=== PATIENT | male | born 2000 | race Caucasian/White ===

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

== ENCOUNTER 2019-02-25 14:32 | Emergency (ER) | payer MEDICAID ==
[2019-02-25 15:11] VITALS: BP 112/49
[2019-02-25] MEDS ORDERED: Lidocaine 2% 20 ML MDV NERVRT ONE (15:37)
[2019-02-25] MEDS ORDERED: Bacitracin Oint 1 GM U/D Packet TOP ONE (15:38)
[2019-02-25] MEDS ORDERED: Diphtheria,Pertussis(Acell),Tetanus Vaccine 0.5 ML SDV IM ONE (15:38)
--- NOTE | 2019-02-25 15:43 | EDM.PDOC ---
ED HPI GENERAL MEDICAL PROBLEM - General Chief Complaint: Laceration Stated Complaint: CUT LEFT THUMB Time Seen by Provider: 02/25/19 15:30 Source of Information: Reports: Patient History Limitations: Reports: No Limitations - History of Present Illness INITIAL COMMENTS - FREE TEXT/NARRATIVE: 18 yo male here after lacerating his L thumb tip, near avulsion, with a typing secretary knife. Tetanus not UTD. Injury about an hour ago. 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: Reports: Other (see below) (dressing applied) Left Finger-Thumb Pain Score (Numeric/FACES): 2 - Related Data Allergies Allergy/AdvReac Type Severity Reaction Status Date / Time bee venom protein (honey bee) Allergy Anaphylactic Verified 02/25/19 15:49 Shock Home Meds: Home Meds NK [No Known Home Meds] 11/27/18 [History] Past Medical History HEENT History: Reports: Allergic Rhinitis Respiratory History: Reports: Asthma Musculoskeletal History: Reports: Other (See Below) Other Musculoskeletal History: fx r wrist fx r elbow Neurological History: Reports: Concussion Psychiatric History: Reports: ADD, Anxiety, Depression, Hallucinations, Panic Attack, PTSD - Past Surgical History Head Surgeries/Procedures: Reports: None HEENT Surgical History: Reports: None Respiratory Surgical History: Reports: None Musculoskeletal Surgical History: Reports: None Dermatological Surgical History: Reports: None Social & Family History - Family History Family Medical History: Unobtainable - Caffeine Use Caffeine Use: Reports: Coffee ED ROS GENERAL - Review of Systems Review Of Systems: See Below Constitutional: Reports: No Symptoms Musculoskeletal: Reports: No Symptoms Skin: Reports: Wound (L thumb tip) Neurological: Reports: No Symptoms ED EXAM, SKIN/RASH Exam: See Below Exam Limited By: No Limitations General Appearance: Alert, WD/WN, No Apparent Distress Extremities: Other (injured L thumb tip) Neurological: Alert, Oriented, CN II-XII Intact, Normal Cognition, No Motor/ Sensory Deficits Psychiatric: Normal Affect, Normal Mood Skin: Warm, Dry, Intact, Normal Color, No Rash Location, Skin: Upper Extremity, Left (thumb tip) Characteristics: Other (flap) Associated features: Tenderness. No: Warmth, Swelling, Lymphangitis ED SKIN PROCEDURES - Laceration/Wound Repair Left Hand Appearance: Subcutaneous, Clean Distal NVT: Neuro & Vascular Intact, No Tendon Injury Anesthetic Type: Digital Local Anesthesia - Lidocaine (Xylocaine): 2% Plain Local Anesthetic Volume: 5cc Skin Prep: Saline Closed with: Sutures Suture Size: other (5-0) Suture Type: Nylon, Simple # of Sutures: 2 Drain Placement: No Sterile Dressing Applied: Nurse Tetanus Status Addressed: Yes Complications: No Course - Vital Signs Last Recorded V/S: Last Vital Signs Temp 35.4 C 02/25/19 15:59 Pulse 67 02/25/19 15:59 Resp 13 02/25/19 15:59 BP 112/49 L 02/25/19 15:59 Pulse Ox 92 L 02/25/19 15:59 - Orders/Labs/Meds Orders: Active Orders 24 hr Category Date Time Status Vaccines to be Administered [RC] PER UNIT ROUTINE Care 02/25/19 15:38 Active Meds: Medications Discontinued Medications Generic Name Dose Route Start Last Admin Trade Name Freq PRN Reason Stop Dose Admin Bacitracin 1 dose 02/25/19 15:38 02/25/19 15:50 Bacitracin Oint 1 Gm TOP 02/25/19 15:39 1 dose ONETIME ONE Administration Diphtheria/Tetanus/Acell Pertussis 0.5 ml 02/25/19 15:38 02/25/19 15:51 Adacel IM 02/25/19 15:39 0.5 ml .ONCE ONE Administration Lidocaine HCl 20 ml 02/25/19 15:37 02/25/19 15:50 Xylocaine 2% NERVRT 02/25/19 15:38 20 ml ONETIME ONE Administration Departure - Departure Time of Disposition: 16:30 Disposition: Home, Self-Care 01 Condition: Good Clinical Impression: Laceration of thumb Qualifiers: Encounter type: initial encounter Damage to nail status: without damage Foreign body presence: without foreign body Laterality: left Qualified Code(s): S61.012A - Laceration without foreign body of left thumb without damage to nail , initial encounter - Discharge Information *PRESCRIPTION DRUG MONITORING PROGRAM REVIEWED*: No *COPY OF PRESCRIPTION DRUG MONITORING REPORT IN PATIENT VELASQUEZ: No Instructions: Laceration Care, Adult Referrals: PCP,None [Primary Care Provider] - Forms: ED Department Discharge Additional Instructions: Clean wound twice daily with soap and water starting tomorrow evening. Dry. Apply antibiotic ointment and a new dressing. Recheck for signs of infection. Stitches out in the clinic in 9 days. - My Orders Last 24 Hours: My Active Orders 02/25/19 15:38 Vaccines to be Administered [RC] PER UNIT ROUTINE - Assessment/Plan Last 24 Hours: My Active Orders 02/25/19 15:38 Vaccines to be Administered [RC] PER UNIT ROUTINE
== END 2019-02-25 16:38 | disposition home or self-care (01) ==
LOC: JP.ED 14:32
DX: S61.012A Laceration without foreign body of left thumb without damage to nail, initial encounter (principal); W26.0XXA Contact with knife, initial encounter; Z23 Encounter for immunization; Z91.030 Bee allergy status
CPT/HCPCS: 12001; 90471; 90715; 99282; J2001

== ENCOUNTER 2019-03-29 12:57 | Emergency (ER) | payer SELFPAY ==
[2019-03-29 13:46] VITALS: BP 123/74
[2019-03-29] MEDS ORDERED: Bacitracin Oint 1 GM U/D Packet TOP ONE (13:56)
--- NOTE | 2019-03-29 14:01 | EDM.PDOC ---
ED HPI GENERAL MEDICAL PROBLEM - General Chief Complaint: Laceration Stated Complaint: CUT FINGER WITH KNIFE Time Seen by Provider: 03/29/19 13:50 Source of Information: Reports: Patient, Old Records, RN History Limitations: Reports: No Limitations - History of Present Illness INITIAL COMMENTS - FREE TEXT/NARRATIVE: 18 yo male presents from work with an avulsion from the tip of the L thumb. Bleeding difficult to control. Tetanus is UTD. Onset: Today Onset Date: 03/29/19 Onset Time: 13:00 Duration: Minutes:, Constant Location: Reports: Upper Extremity, Left Quality: Reports: Burning Severity: Mild Improves with: Reports: None Worsens with: Reports: Other (bumping area) Context: Reports: Trauma Associated Symptoms: Reports: No Other Symptoms Treatments TRACTOR TECHNICIAN: Reports: Other (see below) (none) - Related Data Allergies Allergy/AdvReac Type Severity Reaction Status Date / Time bee venom protein (honey bee) Allergy Anaphylactic Verified 03/29/19 13:45 Shock Home Meds: Home Meds NK [No Known Home Meds] 11/27/18 [History] Past Medical History HEENT History: Reports: Allergic Rhinitis Respiratory History: Reports: Asthma Musculoskeletal History: Reports: Other (See Below) Other Musculoskeletal History: fx r wrist fx r elbow Neurological History: Reports: Concussion Psychiatric History: Reports: ADD, Anxiety, Depression, Hallucinations, Panic Attack, PTSD - Past Surgical History Musculoskeletal Surgical History: Reports: None Social & Family History - Family History Family Medical History: Unobtainable - Tobacco Use Smoking Status *Q: Current Every Day Smoker Years of Tobacco use: 7 Packs/Tins Daily: 0.5 Second Hand Smoke Exposure: No - Caffeine Use Caffeine Use: Reports: None - Recreational Drug Use Recreational Drug Type: Reports: Marijuana/Hashish ED ROS GENERAL - Review of Systems Review Of Systems: See Below Constitutional: Reports: No Symptoms Musculoskeletal: Reports: No Symptoms Skin: Reports: Wound (L thumb tip) Neurological: Reports: No Symptoms ED EXAM, SKIN/RASH Exam: See Below Exam Limited By: No Limitations General Appearance: Alert, WD/WN, No Apparent Distress Extremities: Normal Range of Motion, No Pedal Edema, Other (avulsion from tip of L thumb with continued oozing.) Neurological: Alert, Oriented, CN II-XII Intact, Normal Cognition, No Motor/ Sensory Deficits Psychiatric: Normal Affect, Normal Mood Skin: Warm, Normal Color, No Rash, Wound/Incision (avulsion 0.9 cm in diameter from the tip of the L thumb. ) Location, Skin: Upper Extremity, Left Characteristics: Other (circular avulsion. ) Associated features: Tenderness. No: Warmth Course - Vital Signs Text/Narrative:: Wound cleaned and dressed by nursing. Last Recorded V/S: Last Vital Signs Temp 35.4 C 03/29/19 13:46 Pulse 68 03/29/19 13:46 Resp 13 03/29/19 13:46 BP 123/74 03/29/19 13:46 Pulse Ox 98 03/29/19 13:46 - Orders/Labs/Meds Orders: Active Orders 24 hr Category Date Time Status Bacitracin [Bacitracin Oint 1 GM] Med 03/29/19 13:56 Once 1 dose TOP ONETIME ONE Departure - Departure Time of Disposition: 14:15 Disposition: Home, Self-Care 01 Condition: Fair Clinical Impression: Avulsion, finger tip Qualifiers: Encounter type: initial encounter Qualified Code(s): S61.209A - Unspecified open wound of unspecified finger without damage to nail, initial encounter - Discharge Information *PRESCRIPTION DRUG MONITORING PROGRAM REVIEWED*: No *COPY OF PRESCRIPTION DRUG MONITORING REPORT IN PATIENT VELASQUEZ: No Instructions: Wound Care, Adult Referrals: PCP,None [Primary Care Provider] - Additional Instructions: Starting tomorrow morning clean twice daily with 1/2 water and half peroxide. Dry. Apply antibiotic ointment and a new dressing. Keep elevated and clean for 3 days. Take acetaminophen as needed for pain relief. Recheck in the clinic in 2 -3 days. - My Orders Last 24 Hours: My Active Orders 03/29/19 13:56 Bacitracin [Bacitracin Oint 1 GM] 1 dose TOP ONETIME ONE - Assessment/Plan Last 24 Hours: My Active Orders 03/29/19 13:56 Bacitracin [Bacitracin Oint 1 GM] 1 dose TOP ONETIME ONE
== END 2019-03-29 14:31 | disposition home or self-care (01) ==
LOC: JP.ED 12:57
DX: S61.102A Unspecified open wound of left thumb with damage to nail, initial encounter (principal); F17.210 Nicotine dependence, cigarettes, uncomplicated; Z91.030 Bee allergy status; X58.XXXA Exposure to other specified factors, initial encounter; Y99.0 Civilian activity done for income or pay
CPT/HCPCS: 99282

== ENCOUNTER 2019-04-09 00:28 | Emergency (ER) | payer MEDICAID ==
[2019-04-09 00:48] VITALS: BP 119/58
[2019-04-09] MEDS ORDERED: Lidocaine 1% 20 ML MDV INJECT ONE (01:00)
[2019-04-09] MEDS ORDERED: Bacitracin Oint 1 GM U/D Packet TOP ONE (01:01)
--- NOTE | 2019-04-09 01:01 | EDM.PDOC ---
ED HPI GENERAL MEDICAL PROBLEM - General Chief Complaint: Lower Extremity Injury/Pain Stated Complaint: LEFT BIG TOE INGROWN TOENAIL Time Seen by Provider: 04/09/19 01:01 Source of Information: Reports: Patient History Limitations: Reports: No Limitations - History of Present Illness INITIAL COMMENTS - FREE TEXT/NARRATIVE: pt has been dealing with the ingrown toenail for about 1 week. He has ingrown nails alot but is usually able to deal with them himself. Onset: Today Duration: Hour(s): Location: Reports: Lower Extremity, Left Associated Symptoms: Reports: No Other Symptoms Left Foot Pain Score (Numeric/FACES): 10 - Related Data Allergies Allergy/AdvReac Type Severity Reaction Status Date / Time bee venom protein (honey bee) Allergy Anaphylactic Verified 03/29/19 13:45 Shock Home Meds: Home Meds NK [No Known Home Meds] 11/27/18 [History] Past Medical History HEENT History: Reports: Allergic Rhinitis Respiratory History: Reports: Asthma Musculoskeletal History: Reports: Other (See Below) Other Musculoskeletal History: fx r wrist fx r elbow Neurological History: Reports: Concussion Psychiatric History: Reports: ADD, Anxiety, Depression, Hallucinations, Panic Attack, PTSD - Past Surgical History Head Surgeries/Procedures: Reports: None Musculoskeletal Surgical History: Reports: None Dermatological Surgical History: Reports: None Social & Family History - Family History Family Medical History: Unobtainable - Tobacco Use Smoking Status *Q: Heavy Tobacco Smoker Years of Tobacco use: 6 Packs/Tins Daily: 1 - Caffeine Use Caffeine Use: Reports: Soda - Recreational Drug Use Recreational Drug Use: Yes Recreational Drug Type: Reports: Marijuana/Hashish Review of Systems - Review of Systems Review Of Systems: See Below Constitutional: Reports: No Symptoms Eyes: Reports: No Symptoms Ears: Reports: No Symptoms Nose: Reports: No Symptoms Mouth/Throat: Reports: No Symptoms Respiratory: Reports: No Symptoms Cardiovascular: Reports: No Symptoms GI/Abdominal: Reports: No Symptoms Musculoskeletal: Reports: Other (painful left great toe. ) Skin: Reports: No Symptoms Neurological: Reports: No Symptoms ED EXAM, GENERAL - Physical Exam Exam: See Below Free Text/Narrative:: pt arrived with a ingrown toenil of the rt great toe.This was very red and inflamed. Exam Limited By: No Limitations General Appearance: Alert, Mild Distress Extremities: Other (pt has redness and swelling on the inner aspect of the rt greast toe nail. ) Course - Vital Signs Last Recorded V/S: Last Vital Signs Temp 36.1 C 04/09/19 00:48 Pulse 73 04/09/19 00:48 Resp 16 04/09/19 00:48 BP 119/58 L 04/09/19 00:48 Pulse Ox 98 04/09/19 00:48 - Orders/Labs/Meds Meds: Medications Discontinued Medications Generic Name Dose Route Start Last Admin Trade Name Lisa PRN Reason Stop Dose Admin Bacitracin 1 dose 04/09/19 01:01 04/09/19 01:11 Bacitracin Oint 1 Gm TOP 04/09/19 01:02 1 dose ONETIME ONE Administration Lidocaine HCl 20 ml 04/09/19 01:00 04/09/19 01:12 Xylocaine 1% INJECT 04/09/19 01:01 20 ml ONETIME ONE Administration - Re-Assessments/Exams Free Text/Narrative Re-Assessment/Exam: 04/09/19 01:24 the foot was soaked in a soapy solution the area by the inner aspect of the toe nail. Good anesthesia was obtained. The edge of the nail was cut off and pulled out. The wound was dressed with bacatracin and covered well. Departure - Departure Time of Disposition: 01:27 Disposition: Home, Self-Care 01 Condition: Fair Clinical Impression: Infection of nailbed of toe of right foot - Discharge Information Forms: ED Department Discharge Care Plan Goals: soak foot bid in a soapy solution pull the tissue away from the nail. Avoid cutting the toe nails too short. Dress after soaking with bacatracin and keep covered.
== END 2019-04-09 01:34 | disposition home or self-care (01) ==
LOC: JP.ED 00:28
DX: L03.031 Cellulitis of right toe (principal); L60.0 Ingrowing nail; F17.210 Nicotine dependence, cigarettes, uncomplicated; Z91.030 Bee allergy status
CPT/HCPCS: 11750; 99283; J2001